=== PATIENT | female | born 2000 ===

== ENCOUNTER 2023-09-07 20:03 | Emergency (ER) | payer BC, SELFPAY ==
[2023-09-07 20:07] VITALS: BP 133/92
--- NOTE | 2023-09-07 21:20 | ED.GENMED ---
History of Present Illness
General
Chief Complaint: Breathing Problem
Time Seen by Provider: 09/07/23 20:48
Travel History
Have you had any contact with someone who has COVID-19?: No
Do you have any symptoms of coronavirus? Fever > 100 degrees, chills, cough, shortness of breath, sore throat, loss of taste or smell, muscle aches, or headache?: No
History of Present Illness
History of Present Illness:
22-year-old female with history of anxiety presents the emergency department for evaluation of intermittent periods of dyspnea over the past month. Episodes are random. She states when symptoms began she begins to hyperventilate. The symptoms
seem to spontaneously resolve. Denies any fevers, chills, sweats, nausea, vomiting, or diarrhea. She does openly admit that this could be anxiety related
Review of Systems
Review of Systems
Allergies reviewed?: Yes
All Other Systems: ROS reviewed and negative except as documented in HPI and ROS
Phy Exam
Physical Exam
Physical Exam:
GEN: Well appearing, NAD, WDWN
HEENT: Oral mucosa moist, no scleral icterus
Cardiac: Regular rate and rhythm, no murmurs
Lung: No respiratory distress, no tachypnea, lungs clear to auscultation throughout all cancino
MSK: No gross deformity or injuries
Skin: Good color, no pallor or jaundice, no rashes
Neuro: AO x3, moves all extremities freely
Psych: Calm, cooperative
Course
Orders/Labs/Results
Orders:
Orders
09/07/23 21:30
HydrOXYZINE [Atarax] 25 mg PO NOW STA
Vital Signs
Initial and Last Documented VS:
Initial Vital Signs
Temp Pulse Resp BP Pulse Ox
97.9 F 81 16 133/92 100
09/07/23 20:07 09/07/23 20:07 09/07/23 20:07 09/07/23 20:07 09/07/23 20:07
Last Documented Vital Signs
Temp Pulse Resp BP Pulse Ox
97.9 F 81 16 133/92 100
09/07/23 20:07 09/07/23 20:07 09/07/23 20:07 09/07/23 20:07 09/07/23 20:07
MDM/Problems Addressed
MDM/Problems Addressed:
Patient's vital signs are normal and lungs are clear. She has no symptoms currently. This is likely psychosomatic or anxiety. Did discuss with the patient the possibility for transient bronchospasms however would find this unlikely given her lack
of asthma history and lack of current wheezing.
*Critical Care Note
Total Time (30-74mins, 75-104mins- exclusive of procedures): Not Applicable
ED Attending Note
-
Portions of this chart may have been created with voice recognition software.� Occasional wrong word or��sound alike� substitutions may have occurred due to the inherent limitations of voice recognition software.
Discharge Plan
Departure
Patient Disposition: Home (Routine Discharge)
Date of Disposition: 09/07/23
Time of Disposition: 21:20
Patient with high blood pressure during this ER visit?: No
Discharge Problem:
Anxiety
Instructions: Anxiety, Adult ED
Interventions
Interventions:
*Risk Screen - Suicide Last Done: 09/07/23 20:07
*General Assessment Last Done: 09/07/23 21:38
*Neglect/Abuse Screening Last Done: 09/07/23 21:38
ED- Fall Risk Assessment Last Done: 09/07/23 21:43
*ED COVID-19 Vaccine History Last Done: 09/07/23 20:07
*Nursing Disposition Last Done: 09/07/23 21:43
ED- Cardiac Assessment Last Done: 09/07/23 21:29
ED- Pulmonary Assessment Last Done: 09/07/23 21:29
Discharge Date and Time
Discharge Date/Time: 09/07/23 21:44
[2023-09-07] MEDS: ATARAX 25 MG PO (21:40)
== END 2023-09-07 21:44 | disposition home or self-care (01) ==
LOC: EMR 20:03
PROVIDERS: EMERGENCY PHYSICIAN Emergency Medicine
DX: F41.9 Anxiety disorder, unspecified (principal)
CPT/HCPCS: 99282